=== PATIENT | male | born 1965 | race Caucasian/White ===

== ENCOUNTER 2023-04-14 08:05 | Outpatient (OUT) | payer OTHER, SELFPAY ==
[2023-04-14 08:41] LABS: Basophils Absolute Auto 0.1 10^3/uL (0.0-0.1); Basophils Percent Auto 0.9 % (0.2-2.0); Eosinophils Absolute Auto 0.2 10^3/uL (0.0-0.7); Eosinophils Percent Auto 2.3 % (0.9-7.0); Hemoglobin 16.6 g/dL (14.0-18.0); Immature Granulocytes Abs Auto 0.01 10^3/uL (0.00-0.03); Immature Granulocytes Pct Auto 0.1 % (0.0-0.5); Lymphocytes Absolute Auto 2.1 10^3/uL (1.2-3.8); Lymphocytes Percent Auto 30.4 % (20.5-60.0); Mean Corpuscular HGB Conc 33.9 g/dL (29.9-35.2); Mean Corpuscular Hemoglobin 32.7 pg (25.9-34.0); Mean Corpuscular Volume 96.6 fL (80.0-94.0); Mean Platelet Volume 9.6 fL (9.5-13.5); Monocytes Absolute Auto 0.5 10^3/uL (0.3-0.8); Monocytes Percent Auto 7.2 % (1.7-12.0); Neutrophils Percent Auto 59.1 % (43.0-75.0); Nucleated Red Blood Cells 0; Platelet Count 271 10^3/uL (150-450); Red Blood Count 5.07 10^6/uL (4.70-6.10); Red Cell Distribution Width 12.1 % (11.0-15.0); White Blood Count 6.8 10^3/uL (4.0-11.0)
[2023-04-14 09:22] LABS: Estimated Average Glucose 120 mg/dL; Glycohemoglobin A1C 5.8 % (4.5-6.2)
[2023-04-14 10:09] LABS: Alanine Aminotransferase 27 U/L (16-63); Albumin Globulin Ratio 1.3; Alkaline Phosphatase 45 U/L (46-116); Anion Gap 14.6; Aspartate Amino Transferase 18 U/L (15-37); BUN Creatinine Ratio 17.5; Bilirubin Total 0.6 mg/dL (0.2-1.0); Carbon Dioxide 27.9 mmol/L (21.0-32.0); Chloride 103 mmol/L (98-107); Cholesterol 196 mg/dL (<=200); Estimated GFR (African America >60 (>=60); Estimated GFR (Non-African Ame >60 (>=60); Globulin 3.1 g/dL; Glucose 135 mg/dL (74-106); HDL Cholesterol 39 mg/dL (40-60); Potassium 4.5 mmol/L (3.5-5.1); Prostate Specific Antigen Scrn 1.25 ng/mL (<=4.00); Sodium 141 mmol/L (136-145); Total Protein 7.1 g/dL (6.4-8.2); Triglycerides 164 mg/dL (<=150); VLDL CHOLESTEROL 32.8 mg/dL
== END 2023-04-14 08:06 ==
LOC: LAB 08:09
PROVIDERS: PCP Family Medicine; Visit Provider Specialist
DX: Z00.00 Encounter for general adult medical examination without abnormal findings (principal); Z12.5 Encounter for screening for malignant neoplasm of prostate
CPT/HCPCS: 36415; 80053; 80061; 83036; 85025; G0103